=== PATIENT | male | born 2000 | race Native Hawaiian/Other Pacific Islander ===

== ENCOUNTER 2018-05-04 01:59 | Emergency (ER) | payer BC, OTHER ==
[~2018-05-04] VITALS: Ht 182.9 cm; Wt 72.6 kg
--- NOTE | 2018-05-04 02:15 | NUR ---
PT PRESENTS TO ER W/ C/O RING SSTUCK ON L INDEX FINGER FOR 1HR TUNNEL MUCKER. FINGER IS RED AND SWOLLEN, BUT CMS IS STILL INTACT. PENDING LOCATION OF RING CUTTER.
--- NOTE | 2018-05-04 02:26 | NUR ---
UNABLE TO SUCCESSFULLY REMOVE RING W/ MANUAL RING CUTTER. ATTEMPTING TO FIND ELECTRIC RING CUTTER. FINGER IS BECOMING INCREASINGLY SWOLLEN AND PAINFUL. ICE PACK PROVIDED.
--- NOTE | 2018-05-04 02:55 | NUR ---
ATTEMPTED TO LOCATE RING CUTTER BY CALLING DIFFERENT UNITS [facility], [facility], [facility], WELL CALLING [facility], BUT NONE OF THESE SOURCES HAD FUNCTIONAL RING CUTTER. WAS TOLD BY [facility] THAT THE LAST TIME THIS HAPPENED TO THEM, THEY HAD TO CALL THE FIRE DEPARTMENT TO OBTAIN THEIR RING CUTTER. 911 WAS CALLED BY CHARGE NURSE. WAS TOLD IS WAS A NON EMERGENCY CALL AND THEY THEY WOUOD SEND A UNIT TO US WITH A RING CUTTER. , PT, AND REIMBURSEMENT REPRESENTATIVE AWARE.
--- NOTE | 2018-05-04 03:06 | NUR ---
RA 909 ARRIVED W/ RING CUTTER
--- NOTE | 2018-05-04 03:06 | NUR ---
Mara castillo in [facility] - 05/04/18 at 0413 by SAMARA RA [employer]/ JAE SALDANA
--- NOTE | 2018-05-04 03:32 | NUR ---
RA 90John CALLED [employer] TO BRING ELECTRIC RING CUTTER AFTER THEIR MANUAL RING CUTTER WAS UNABLE TO CUT THROUGH RING.
--- NOTE | 2018-05-04 04:06 | NUR ---
Patient discharged to home in stable conditon. Written and verbal after care instructions given. Patient verbalizes understanding of instructions. Ring removed by rescue. Pt left ER in steady gait. All belongings with pt. VSS. No acute distress noted.
[2018-05-04 04:07] VITALS: BP 131/72
== END 2018-05-04 04:06 | disposition home or self-care (01) ==
LOC: ER 02:02
DX: S60.451A Superficial foreign body of left index finger, initial encounter (principal); X58.XXXA Exposure to other specified factors, initial encounter; Y93.89 Activity, other specified; Y92.89 Other specified places as the place of occurrence of the external cause; Y99.8 Other external cause status
CPT/HCPCS: A4663